=== PATIENT | female | born 1945 | race Caucasian/White ===

== ENCOUNTER 2016-10-16 13:29 | Emergency (ER) | payer OTHER, MEDICARE ==
[~2016-10-16] VITALS: Ht 160 cm; Wt 89.4 kg
[2016-10-16] MEDS ORDERED: IRBE150T12 (13:50)
[2016-10-16] MEDS ORDERED: [UNRECOGNIZED DRUG - REMARK] PO (13:50)
--- NOTE | 2016-10-16 15:14 | REP ---
Chest two views HISTORY: Chest pain Comparison: None The lungs are clear. The heart is upper limits of normal in size. The pulmonary vasculature is normal in appearance. The bony structure is intact. IMPRESSION: No acute disease. Signed by Scott Drake MD 10/16/2016 03:05 P
[2016-10-16] MEDS ORDERED: NS 500 ML IV ONE (15:45)
[2016-10-16 15:59] LABS: BASO # 0.1 K/mm3 (0.0-0.2); BASO % 0.3 % (0.0-1.0); EOS # 0.3 K/mm3 (0.0-0.50); EOS % 1.6 % (0.0-3.0); LARGE UNSTAINED CELL # 0.2 K/mm3 (0.0-0.4); LARGE UNSTAINED CELL % 1.1 % (0.0-4.0); LYMPH # 2.7 K/mm3 (1.5-4.5); LYMPH % 14.4 % (24.0-44.0); MEAN CORPUSCULAR HEMOGLOBIN 28.6 pg (27.0-33.0); MEAN CORPUSCULAR HGB CONC 32.9 g/dl (32.0-36.5); MONO # 0.5 K/mm3 (0.0-0.8); NEUTROPHILS % 79.5 % (36.0-66.0); PLATELET COUNT, AUTOMATED 328 k/mm3 (150-450); RED CELL DISTRIBUTION WIDTH 13.5 % (11.5-14.5); WHITE BLOOD COUNT 17.6 K/mm3 (4.0-10.0)
[2016-10-16 16:26] LABS: ANION GAP 7 MEQ/L (8-16); BLOOD UREA NITROGEN 17 MG/DL (7-18); CALCIUM LEVEL 8.9 MG/DL (8.8-10.2); CARBON DIOXIDE LEVEL 29 MEQ/L (21-32); CHLORIDE LEVEL 107 MEQ/L (98-107); CREATININE FOR GFR 0.66 MG/DL (0.55-1.02); GLOMERULAR FILTRATION RATE > 60.0 (>39); GLUCOSE, FASTING 115 MG/DL (83-110); POTASSIUM SERUM 3.9 MEQ/L (3.5-5.1); SODIUM LEVEL 143 MEQ/L (136-145)
[2016-10-16] MEDS ORDERED: ISOVUE-370 76% 100ML VIAL (Q9967) As Ordered ONE (16:44)
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
[2016-10-16] MEDS ORDERED: ACETAMINOPHEN TAB 650MG DOSE (2X325MG) PO ONE (18:15)
[2016-10-16 18:23] VITALS: BP 169/74
--- NOTE | 2016-10-17 08:35 | REP ---
SACRUM/COCCYX, THREE VIEWS: HISTORY: Chest pain. There is no acute fracture or subluxation. The L4-5 and L5-S1 intervertebral discs are decreased in height consistent with disc degeneration. IMPRESSION: Degenerative change, as described above. Signed by Scott Drake MD 10/17/2016 08:36 A
== END 2016-10-16 18:24 | disposition home or self-care (01) ==
LOC: EDBD 13:29 → M ED 14:36
DX: Z04.1 Encounter for examination and observation following transport accident (principal); R07.9 Chest pain, unspecified; V43.62XA Car passenger injured in collision with other type car in traffic accident, initial encounter; Y92.410 Unspecified street and highway as the place of occurrence of the external cause; Y93.89 Activity, other specified; Y99.8 Other external cause status
CPT/HCPCS: 71020; 71260; 72220; 74177; 80048; 85025; 96360; 99284; Q9967

== ENCOUNTER 2019-07-12 14:26 | Inpatient (IN) | payer MEDICARE ==
[~2019-07-12] VITALS: Ht 160 cm; Wt 87.6 kg
[~2019-07-12 14:26] MED LIST: IRBE150T7; [UNRECOGNIZED DRUG - REMARK] PO
[2019-07-12] MEDS ORDERED: CYCLOBENZAPRINE 5MG TABLET PO PRN (15:30)
[2019-07-12] MEDS ORDERED: MOM 30ML SUSPENSION UDC PO PRN (15:30)
[2019-07-12] MEDS ORDERED: BISACODYL 10 MG SUPP PR PRN (15:30)
[2019-07-12] MEDS ORDERED: ONDANSETRON 4 MG ORAL DISINTEGRATING TAB (Q0162 PER 1MG) PO PRN (15:30)
[2019-07-12] MEDS ORDERED: oxyCODONE 5MG TAB PO PRN (15:30)
--- NOTE | 2019-07-12 16:17 | HPEPDOC ---
Top Flavor Attendant Note DATE OF ADMISSION: 07-12-19 DATE OF SERVICE: 07-13-19 TIME OF ADMISSION: Please refer to physician's admission order. SOURCE OF ADMISSION INFORMATION: [facility] records and patient CHIEF COMPLAINT: hip fracture HISTORY OF PRESENT ILLNESS: 74F pmh left sided breast mass known for 5 years, htn, asthma, obesity who fell in [place] and transferred to [facility] in [place] after stepping down onto her left leg and heard a crack. CT LE on 07-05-19 showing, fracture of the left mid femoral diaphysis with mild displacement and mild posterior medial angulation of the distal fracture fragment. The edges of the bone are eroded highly suspicious for a pathologic fracture. Tumor is suspected, potentially metastatic disease. She was evaluated by orthopedics and cleared by medicine for ORIF performed 07-06-19. Post-op hip x-ray showed, interval placement of intramedullary femoral nohemi and femoral neck screws traversing femoral shaft fracture. She had post-op pain and elevated blood pressures in addition to lower extremity edema. She was evaluated by therapy, found to have impairments in mobility and ADLs and deemed medically appropriate for discharge to ARU, planned admission 07-12-19. REVIEW OF SYSTEMS: The following is a completed review of systems and has been reviewed. Review of systems otherwise unremarkable. PAIN: Patient self reports mild left hip pain EYES: No recent vision changes EARS, NOSE, & THROAT: No throat pain, or dysphagia, or rhinorrhea CARDIOVASCULAR: Denies chest pain or palpitations PULMONARY: Denies shortness of breath, +occasional cough GASTROINTESTINAL: Denies constipation/diarrhea GENITOURINARY: denies dysuria MUSCULOSKELETAL: left leg weakness NEUROLOGICAL: no focal tremor or neuropathy HEMATOLOGICAL: denies easy bruising SKIN: left hip incision PSYCHIATRIC: Unremarkable All other review of systems found to be negative. PAST MEDICAL HISTORY: as per HPI PAST SURGICAL HISTORY: as per HPI ALLERGIES: Please see below. MEDICATIONS: Please see below. SOCIAL HISTORY:former smoker, no illicit drugs, occasional ETOH DIET: low sodium, fluid restrict PHYSICAL EXAMINATION: VITAL SIGNS: Please see below. GENERAL: Pleasant and cooperative. No acute distress. HEENT: PERRL. Extraocular movements intact. Clear conjunctiva CARDIOVASCULAR: Regular rate and rhythm. No murmurs, rubs, or gallops LUNGS: Clear to auscultation bilaterally. No wheezes. No rhonchi ABDOMEN: Soft, nontender, nondistended. Positive bowel sounds. Normal active bowel sounds NEUROLOGICAL: Alert and oriented times three. Cranial nerves II through XII grossly intact. Sensation grossly intact including 1st web space of left foot EXTREMITIES: 5\5 strength bilateral upper extremities. 5\5 strength right lower extremity. 4/5 strength in left lower extremity. LLE edema>RLE SKIN: left hip and distal femur incisions- c/d/i with no induration LABORATORY DATA: Please see below. IMAGING:Imaging documentation personally reviewed by record FUNCTIONAL STATUS: Premorbid: Independent with all activities of daily life as well as mobility, occasional use of cane On Admission: Min assist for ambulation, functional transfers, bed mobility, dressing, toileting GOALS: Mod-I with RW community distances, functional transfers, stairs, dressing, bathing, toileting, medical optimization ASSESSMENT:74-year-old F with past medical history of HTN who presents status post left hip fracture. PLAN: 1. Rehab- PT/OT WBAT to LLE, advance gait and ADLs, dynamic balance training, strengthen/stretch/maintain ROM all 4 limbs 2. Neuro: no known hx, avoid deliriogenic meds 3. Cardio: pmh HTN, c/u home med Lozol, suspect degree of CHF will order daily weights and fluid restrict, patient refusing to take additional BP meds and will bring in her homeopathic BP med as soon as she can -medicine consulted to assist in management 4. resp: Hx of asthma, will start Duonebs TID, encourage incentive spirometry, m onitor for infection 5. Ortho: s/p left femur fracture ORIF, WBAT, awaiting pathology given concern due to metastatic disease 6. Onc: patient will need f/u for left breast mass, will consult onc while inhouse and help coordinate care 7. : monitor PVRs 8. GIppx: Pepcid, bowel meds 9. DVT ppx: Lovenox and TEDs- admission Doppler negative 10. Pain: tynelol standing, patient declining gabapentin/Flexeril/opioids 11. DIspo: TBD POST ADMISSION PHYSICIAN EVALUATION: Medical and functional status: Description of medical status, medical assessment: As above. Rehabilitation diagnosis and current and prior cold morbid medical conditions as above. Risk of complications and plans to mitigate them as above. Description of functional status current status is as above. Prior status as above. Status compared to preadmission: There are no clinically significant differences between the patient's current status and the information described on the preadmission screening document. Treatment plan anticipated: Treatment plan is as described above. Required disciplines including physical therapy, occupational therapy, others as noted above Intensity of services: 3 hours a day, 6 days a week. Special considerations: There are no specific special or safety considerations that would likely preclude immediate implementation of an intensive rehabilitation program or subsequently influence the plan of care. ATTESTATION: Considering all the information above, it is my best judgment that this patient requires intensive rehabilitation therapy as described above and an inpatient hospital environment due to the complexity of nursing, medical, and rehabilitation needs required by the patient. Furthermore, this patient can reasonably be expected to participate in an benefit from an inpatient rony abilitation stay with an interdisciplinary team approach to the delivery of rehabilitation care under the direction and supervision of rehabilitation physician. PROGNOSIS: Excellent ESTIMATED LENGTH OF STAY: 10-14 days. PROJECTED DISCHARGE DESTINATION: Home with family support and any durable medical equipment required to increase functional safety and mobility TIME SPENT COUNSELING AND COORDINATING INITIAL CARE: Greater than 70 minutes. Vital Signs Vital Signs Date Time Temp Pulse Resp B/P (MAP) Pulse Ox O2 Delivery O2 Flow Rate FiO2 07/12/19 19:30 98.9 106 18 171/81 (111) 95 Room Air Home Medications Scheduled Enoxaparin Sodium (Enoxaparin Sodium) 40 Mg/0.4 Ml Syringe, 40 MG SC DAILY, (Reported) Famotidine (Famotidine) 20 Mg Tablet, 20 MG PO DAILY, (Reported) Indapamide (Indapamide) 1.25 Mg Tablet, 1.25 MG PO DAILY, (Reported) Scheduled PRN Albuterol Sulfate (Ventolin Hfa) 18 Gm Hfa.aer.ad, 2 PUFF INH Q4H PRN for wheezing, (Reported) Bisacodyl (Bisacodyl) 10 Mg Supp.rect, 10 MG [place] DAILY PRN for CONSTIPATION, (Reported) Cyclobenzaprine HCl (Cyclobenzaprine HCl) 10 Mg Tablet, 5 MG PO TID PRN for MUSCLE SPASMS, (Reported) Ibuprofen (Ibuprofen) 600 Mg Tablet, 600 MG PO TID PRN for PAIN, (Reported) Milk Of Magnesia (Milk of Magnesia) 2,400 Mg/10 Ml Oral.susp, 30 ML PO DAILY PRN for CONSTIPATION, (Reported) Ondansetron HCl (Ondansetron HCl) 4 Mg Tablet, 4 MG PO Q6H PRN for NAUSEA OR VOMITING, (Reported) Allergies Coded Allergies: codeine (Verified Adverse Reaction, Unknown, VOMIT, 07/12/19) A-FIB/CHADSVASC A-FIB History Current/History of A-Fib/PAF?: No GAGE WILLIS MD Jul 12, 2019 16:17
[2019-07-12 19:30] VITALS: BP 171/81
[2019-07-12] MEDS: IPRATROPIUM 0.5MG/ALBUTEROL 2.5MG INH SOL UD 3ML (DUONEB)(J7620) NEB SCH (20:00)
[2019-07-12] MEDS ORDERED: ACETAMINOPHEN TAB 650MG DOSE (2X325MG) PO SCH (21:00)
[2019-07-12] MEDS ORDERED: IBUP1TAB6 PO (21:24)
[2019-07-12] MEDS ORDERED: VENTAER INH (21:24)
[2019-07-12] MEDS ORDERED: ENOX40IN3 SC (21:24)
[2019-07-12] MEDS ORDERED: INDA125TA PO (21:24)
[2019-07-12] MEDS ORDERED: CYCL10TA PO (21:24)
[2019-07-12] MEDS ORDERED: ONDA-83 PO (21:24)
[2019-07-12] MEDS ORDERED: BISA10SU27 PR (21:24)
[2019-07-12] MEDS ORDERED: FAMO20TA PO (21:24)
[2019-07-12] MEDS ORDERED: MOM30SS PO (21:24)
[2019-07-12] MEDS: ACETAMINOPHEN 500 MG TAB PO SCH (22:37)
[2019-07-12] MEDS: SENNA 8.6 MG TAB (SENOKOT) PO SCH (22:37)
[2019-07-12] MEDS: DOCUSATE SODIUM 100 MG CAP PO SCH (22:37)
[2019-07-12] MEDS: METOPROLOL TART 12.5 MG PER 1/2 TAB PO SCH (22:38)
[2019-07-12] MEDS: GABAPENTIN 100 MG CAP PO SCH (22:41)
[2019-07-12 23:31] VITALS: BP 150/72
[2019-07-13 05:45] VITALS: BP 173/70
[2019-07-13] MEDS: IPRATROPIUM 0.5MG/ALBUTEROL 2.5MG INH SOL UD 3ML (DUONEB)(J7620) NEB SCH ×4 (07:44→19:27)
[2019-07-13 08:50] LABS: BASO % 0.4 % (0.0-1.0); EOS # 0.4 10^3/uL (0.0-0.5); EOS % 3.7 % (0.0-3.0); HEMATOCRIT 39.4 % (36.0-47.0); HEMOGLOBIN 12.4 g/dl (12.0-15.5); LYMPH # 2.5 10^3/uL (1.5-5.0); LYMPH % 23.3 % (24.0-44.0); MEAN CORPUSCULAR HEMOGLOBIN 28.8 pg (27.0-33.0); MEAN CORPUSCULAR HGB CONC 31.5 g/dl (32.0-36.5); MEAN CORPUSCULAR VOLUME 91.4 fl (80.0-96.0); MONO # 0.8 10^3/uL (0.0-0.8); MONO % 7.5 % (0.0-5.0); NEUTROPHILS # 6.9 10^3/uL (1.5-8.5); NEUTROPHILS % 64.1 % (36.0-66.0); PLATELET COUNT, AUTOMATED 468 10^3/uL (150-450); RED BLOOD COUNT 4.31 10^6/uL (4.00-5.40); WHITE BLOOD COUNT 10.8 10^3/uL (4.0-10.0)
[2019-07-13] MEDS: ACETAMINOPHEN 500 MG TAB PO SCH ×3 (09:00→21:00)
[2019-07-13] MEDS: DOCUSATE SODIUM 100 MG CAP PO SCH ×2 (09:00→21:00)
[2019-07-13] MEDS: METOPROLOL TART 12.5 MG PER 1/2 TAB PO SCH (09:00)
[2019-07-13] MEDS ORDERED: amLODIPine 10 MG TAB PO SCH (09:00)
[2019-07-13] MEDS: GABAPENTIN 100 MG CAP PO SCH (09:00)
[2019-07-13] MEDS: FAMOTIDINE 20 MG TAB PO SCH (09:00)
[2019-07-13 09:18] LABS: ALBUMIN 3.1 GM/DL (3.2-5.2); ALT/SGPT 33 U/L (12-78); BILIRUBIN,TOTAL 0.5 MG/DL (0.2-1.0); BLOOD UREA NITROGEN 19 MG/DL (7-18); CALCIUM LEVEL 9.2 MG/DL (8.8-10.2); CARBON DIOXIDE LEVEL 31 MEQ/L (21-32); CHLORIDE LEVEL 103 MEQ/L (98-107); CREATININE FOR GFR 0.76 MG/DL (0.55-1.30); GLOMERULAR FILTRATION RATE > 60.0 (>39); GLUCOSE, FASTING 156 MG/DL (70-100); POTASSIUM SERUM 3.5 MEQ/L (3.5-5.1); SODIUM LEVEL 139 MEQ/L (136-145); TOTAL PROTEIN 7.5 GM/DL (6.4-8.2)
[2019-07-13] MEDS: ENOXAPARIN 40 MG/0.4 ML SYRINGE (J1650) SC SCH (10:22)
[2019-07-13] MEDS: INDAPAMIDE 1.25MG TABLET PO SCH (10:22)
--- NOTE | 2019-07-13 10:29 | REP ---
Bilateral lower extremity Duplex Doppler venous ultrasound: Real time compression and duplex Doppler interrogation of the bilateral lower extremity deep venous system is performed. Bilaterally, the common femoral, superficial femoral and popliteal veins are fully compressible with transducer pressure and demonstrate normal spontaneous and phasic flow, without evidence of deep venous thrombosis. Impression: No evidence of deep venous thrombosis of the bilateral lower extremity femoral popliteal venous system. Electronically Signed by Jose Briceno MD 07/13/2019 10:20 A
[2019-07-13 14:00] VITALS: BP 164/74
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
[2019-07-13 21:00] VITALS: BP 156/89
[2019-07-13] MEDS: SENNA 8.6 MG TAB (SENOKOT) PO SCH (21:00)
[2019-07-13] MEDS: BISACODYL 10 MG SUPP PR SCH (21:00)
[2019-07-14 06:00] VITALS: BP 146/68
[2019-07-14] MEDS: IPRATROPIUM 0.5MG/ALBUTEROL 2.5MG INH SOL UD 3ML (DUONEB)(J7620) NEB SCH ×3 (07:37→20:00)
[2019-07-14] MEDS: FAMOTIDINE 20 MG TAB PO SCH (09:00)
[2019-07-14] MEDS: ACETAMINOPHEN 500 MG TAB PO SCH ×3 (09:00→20:59)
[2019-07-14] MEDS: DOCUSATE SODIUM 100 MG CAP PO SCH ×2 (09:00→20:58)
[2019-07-14] MEDS: ENOXAPARIN 40 MG/0.4 ML SYRINGE (J1650) SC SCH (09:33)
[2019-07-14] MEDS: INDAPAMIDE 1.25MG TABLET PO SCH (09:33)
[2019-07-14 14:00] VITALS: BP 148/78
[2019-07-14 20:00] VITALS: BP 180/90
[2019-07-14] MEDS: SENNA 8.6 MG TAB (SENOKOT) PO SCH (20:58)
[2019-07-14] MEDS: BISACODYL 10 MG SUPP PR SCH (20:59)
[2019-07-14 21:30] VITALS: BP 168/74
[2019-07-15 06:00] VITALS: BP 190/90
[2019-07-15 06:52] LABS: HEMATOCRIT 34.6 % (36.0-47.0); HEMOGLOBIN 11.1 g/dl (12.0-15.5); MEAN CORPUSCULAR HEMOGLOBIN 29.1 pg (27.0-33.0); MEAN CORPUSCULAR HGB CONC 32.1 g/dl (32.0-36.5); MEAN CORPUSCULAR VOLUME 90.8 fl (80.0-96.0); PLATELET COUNT, AUTOMATED 390 10^3/uL (150-450); RED BLOOD COUNT 3.81 10^6/uL (4.00-5.40); WHITE BLOOD COUNT 9.2 10^3/uL (4.0-10.0)
[2019-07-15 07:10] LABS: BLOOD UREA NITROGEN 15 MG/DL (7-18); CALCIUM LEVEL 9.1 MG/DL (8.8-10.2); CARBON DIOXIDE LEVEL 31 MEQ/L (21-32); CHLORIDE LEVEL 106 MEQ/L (98-107); CREATININE FOR GFR 0.52 MG/DL (0.55-1.30); GLOMERULAR FILTRATION RATE > 60.0 (>39); GLUCOSE, FASTING 107 MG/DL (70-100); POTASSIUM SERUM 3.7 MEQ/L (3.5-5.1); SODIUM LEVEL 141 MEQ/L (136-145)
[2019-07-15] MEDS: FAMOTIDINE 20 MG TAB PO SCH (07:48)
[2019-07-15] MEDS: DOCUSATE SODIUM 100 MG CAP PO SCH ×2 (07:51→20:23)
[2019-07-15] MEDS: INDAPAMIDE 1.25MG TABLET PO SCH (07:51)
[2019-07-15] MEDS: ENOXAPARIN 40 MG/0.4 ML SYRINGE (J1650) SC SCH (07:52)
[2019-07-15] MEDS: ACETAMINOPHEN 500 MG TAB PO SCH ×3 (07:52→20:21)
[2019-07-15] MEDS: IPRATROPIUM 0.5MG/ALBUTEROL 2.5MG INH SOL UD 3ML (DUONEB)(J7620) NEB SCH ×3 (08:00→20:00)
[2019-07-15 10:18] VITALS: BP 178/76
[2019-07-15] MEDS: METOPROLOL TART 25 MG TABLET PO SCH ×2 (10:58→20:22)
[2019-07-15 13:47] VITALS: BP 180/82
[2019-07-15] MEDS: **hydrALAZINE HCL** 25 MG TAB PO SCH ×2 (14:05→20:22)
[2019-07-15 20:00] VITALS: BP 160/84
[2019-07-15] MEDS: BISACODYL 10 MG SUPP PR SCH (20:23)
[2019-07-15] MEDS: SENNA 8.6 MG TAB (SENOKOT) PO SCH (20:23)
[2019-07-15] MEDS ORDERED: amLODIPine 5 MG TAB PO SCH (21:00)
[2019-07-16 06:00] VITALS: BP 143/64
[2019-07-16] MEDS: IPRATROPIUM 0.5MG/ALBUTEROL 2.5MG INH SOL UD 3ML (DUONEB)(J7620) NEB SCH ×3 (08:00→20:00)
[2019-07-16] MEDS: FAMOTIDINE 20 MG TAB PO SCH (08:41)
[2019-07-16] MEDS: INDAPAMIDE 1.25MG TABLET PO SCH (08:41)
[2019-07-16] MEDS: ENOXAPARIN 40 MG/0.4 ML SYRINGE (J1650) SC SCH (08:41)
[2019-07-16] MEDS: ACETAMINOPHEN 500 MG TAB PO SCH ×3 (08:42→21:51)
[2019-07-16] MEDS: DOCUSATE SODIUM 100 MG CAP PO SCH ×2 (08:42→21:00)
[2019-07-16] MEDS: METOPROLOL TART 25 MG TABLET PO SCH (08:44)
[2019-07-16] MEDS: **hydrALAZINE HCL** 25 MG TAB PO SCH ×3 (08:44→21:50)
[2019-07-16 14:00] VITALS: BP 158/78
[2019-07-16] MEDS ORDERED: ENTER DRUG NAME HERE (PATIENT'S OWN MED) PO SCH (14:45)
--- NOTE | 2019-07-16 14:48 | IPNPDOC ---
PM&R Progress Note DATE OF SERVICE: Jul 16, 2019 Law Librarian Progress Note Subjective: Patient reporting she is feeling well overall, but that her left leg feel swollen. REVIEW OF SYSTEMS: The following is a completed review of systems and has been reviewed. Review of systems otherwise unremarkable. PAIN: Patient self reports mild left hip pain EYES: No recent vision changes EARS, NOSE, & THROAT: No throat pain, or dysphagia, or rhinorrhea CARDIOVASCULAR: Denies chest pain or palpitations PULMONARY: Denies shortness of breath, +occasional cough GASTROINTESTINAL: Denies constipation/diarrhea GENITOURINARY: denies dysuria MUSCULOSKELETAL: left leg weakness NEUROLOGICAL: no focal tremor or neuropathy HEMATOLOGICAL: denies easy bruising SKIN: left hip incision PSYCHIATRIC: Unremarkable All other review of systems found to be negative. PHYSICAL EXAMINATION: VITAL SIGNS: Please see below. GENERAL: Pleasant and cooperative. No acute distress. HEENT: PERRL. Extraocular movements intact. Clear conjunctiva CARDIOVASCULAR: Regular rate and rhythm. No murmurs, rubs, or gallops LUNGS: Clear to auscultation bilaterally. No wheezes. No rhonchi ABDOMEN: Soft, nontender, nondistended. Positive bowel sounds. Normal active bowel sounds NEUROLOGICAL: Alert and oriented times three. Cranial nerves II through XII grossly intact. Sensation grossly intact including 1st web space of left foot EXTREMITIES: 5\5 strength bilateral upper extremities. 5\5 strength right lower extremity. 4/5 strength in left lower extremity. LLE edema>RLE SKIN: left hip and distal femur incisions- c/d/i with no induration ASSESSMENT:74-year-old F with past medical history of HTN who presents status post left hip fracture. PLAN: 1. Rehab- PT/OT WBAT to LLE, advance gait and ADLs, dynamic balance training, strengthen/stretch/maintain ROM all 4 limbs 2. Neuro: no known hx, avoid deliriogenic meds 3. Cardio: pmh HTN, c/u home med Lozol, suspect degree of CHF will order daily weights and fluid restrict, patient now agreeing to take additional BP meds, c/u Metoprolol and hydralazine, patient has brought in herbal BP med -will start low dose lasix for LE edema -medicine consulted to assist in management 4. resp: Hx of asthma, will start Duonebs TID, encourage incentive spirometry, monitor for infection 5. Ortho: s/p left femur fracture ORIF, WBAT, awaiting pathology given concern due to metastatic disease 6. Onc: patient will need f/u for left breast mass, will consult onc while inhouse and help coordinate care 7. : monitor PVRs 8. GIppx: Pepcid, bowel meds 9. DVT ppx: Lovenox and TEDs- admission Doppler negative 10. Pain: tynelol standing, patient declining gabapentin/Flexeril/opioids 11. DIspo: TBD Allergies Coded Allergies: codeine (Verified Adverse Reaction, Unknown, VOMIT, 07/12/19) Vital Signs Vital Signs Date Time Temp Pulse Resp B/P (MAP) Pulse Ox O2 Delivery O2 Flow Rate FiO2 07/16/19 14:00 97.5 89 18 158/78 (104) 96 Room Air Current Medications Current Medications Current Medications Medications (Trade) Dose Ordered Sig/Jorge Route PRN Reason Start Time Stop Time Status Last Admin Dose Admin Acetaminophen (Tylenol Tab) 1,000 mg TID PO 07/12/19 21:00 07/12/19 22:08 DC Acetaminophen (Tylenol Tab) 1,000 mg TID PO 07/12/19 21:00 07/16/19 08:42 Albuterol/ Ipratropium (Duoneb (Ipr 0.5mg/Alb 2.5mg)) 3 ml RTID NEB 07/12/19 20:00 Amlodipine Besylate (Norvasc) 5 mg QHS PO 07/15/19 21:00 07/16/19 14:48 DC 07/15/19 20:22 Amlodipine Besylate (Norvasc) 10 mg DAILY PO 07/13/19 09:00 07/12/19 15:58 DC Bisacodyl (Dulcolax Suppository) 10 mg DAILYPRN PRN RI CONSTIPATION 07/12/19 15:30 07/13/19 13:43 DC Bisacodyl (Dulcolax Suppository) 10 mg QHS RI 07/13/19 21:00 Cyclobenzaprine HCl (Flexeril) 5 mg Q8HP PRN PO SPASMS 07/12/19 15:30 07/13/19 13:43 DC Docusate Sodium (Colace) 100 mg BID PO 07/12/19 21:00 07/16/19 08:42 Enoxaparin Sodium (Lovenox) 40 mg DAILY SC 07/13/19 09:00 07/16/19 08:41 Famotidine (Pepcid) 20 mg DAILY PO 07/13/19 09:00 07/16/19 08:41 Furosemide (Lasix) 20 mg DAILY PO 07/16/19 15:00 UNV Gabapentin (Neurontin) 200 mg TID PO 07/12/19 21:00 07/13/19 12:50 DC Home Med (Med Rec Complete!) ASDIRECTED XX 07/12/19 21:30 07/12/19 21:37 DC Hydralazine HCl (Apresoline) 25 mg TID PO 07/15/19 14:00 07/16/19 08:44 Indapamide (Lozol) 1.25 mg DAILY PO 07/13/19 09:00 07/16/19 08:41 Magnesium Hydroxide (Milk Of Magnesia) 30 ml DAILYPRN PRN PO CONSTIPATION 07/12/19 15:30 Metoprolol Tartrate (Lopressor) 12.5 mg BID PO 07/12/19 21:00 07/13/19 12:50 DC Metoprolol Tartrate (Lopressor) 25 mg BID PO 07/15/19 09:00 07/16/19 14:48 DC 07/16/19 08:44 Metoprolol Tartrate (Lopressor) 50 mg BID PO 07/16/19 21:00 UNV Ondansetron HCl (Zofran Odt) 4 mg Q6HP PRN PO NAUSEA OR VOMITING 07/12/19 15:30 Oxycodone HCl (Roxicodone, Oxyir) 2.5 mg Q4HP PRN PO PAIN 07/12/19 15:30 07/13/19 13:43 DC Patient Own Medication (Patient'S Own Med) [facility] Bl... ASDIRECTED PO 07/16/19 14:45 UNV Patient Own Medication (Patient'S Own Med) [facility] pac... ASDIRECTED PO 07/16/19 14:45 UNV Senna (Senokot) 1 tab QHS PO 07/12/19 21:00 07/14/19 20:58 GAGE WILLIS MD Jul 16, 2019 14:48
[2019-07-16] MEDS: [UNRECOGNIZED DRUG - OTHER] PO SCH (16:14)
[2019-07-16] MEDS: FUROSEMIDE 20 MG TAB PO SCH (16:15)
[2019-07-16] MEDS: BISACODYL 10 MG SUPP PR SCH (21:00)
[2019-07-16] MEDS: SENNA 8.6 MG TAB (SENOKOT) PO SCH (21:00)
[2019-07-16 21:45] VITALS: BP 156/96
[2019-07-16] MEDS: METOPROLOL TART 50 MG TAB PO SCH (21:50)
[2019-07-17 06:00] VITALS: BP 140/46
[2019-07-17] MEDS: IPRATROPIUM 0.5MG/ALBUTEROL 2.5MG INH SOL UD 3ML (DUONEB)(J7620) NEB SCH ×3 (07:50→20:00)
[2019-07-17] MEDS: [UNRECOGNIZED DRUG - OTHER] PO SCH (08:27)
[2019-07-17] MEDS: METOPROLOL TART 50 MG TAB PO SCH ×2 (08:28→20:42)
[2019-07-17] MEDS: **hydrALAZINE HCL** 25 MG TAB PO SCH ×3 (08:30→20:41)
[2019-07-17] MEDS: INDAPAMIDE 1.25MG TABLET PO SCH (08:30)
[2019-07-17] MEDS: MULTIVITAMINS/MINERALS THERAP 1 TAB PO SCH (08:31)
[2019-07-17] MEDS: ACETAMINOPHEN 500 MG TAB PO SCH ×3 (08:31→20:45)
[2019-07-17] MEDS: DOCUSATE SODIUM 100 MG CAP PO SCH ×2 (08:31→20:47)
[2019-07-17] MEDS: FAMOTIDINE 20 MG TAB PO SCH (08:32)
[2019-07-17] MEDS: ENOXAPARIN 40 MG/0.4 ML SYRINGE (J1650) SC SCH (08:32)
[2019-07-17] MEDS: FUROSEMIDE 20 MG TAB PO SCH (08:32)
[2019-07-17 10:08] LABS: BLOOD UREA NITROGEN 12 MG/DL (7-18); CALCIUM LEVEL 8.8 MG/DL (8.8-10.2); CARBON DIOXIDE LEVEL 32 MEQ/L (21-32); CHLORIDE LEVEL 104 MEQ/L (98-107); CREATININE FOR GFR 0.71 MG/DL (0.55-1.30); GLOMERULAR FILTRATION RATE > 60.0 (>39); GLUCOSE, FASTING 191 MG/DL (70-100); POTASSIUM SERUM 3.4 MEQ/L (3.5-5.1); SODIUM LEVEL 140 MEQ/L (136-145)
[2019-07-17] MEDS ORDERED: POTASSIUM CHLORIDE 10 MEQ SR TABLET PO ONE (12:00)
[2019-07-17 15:43] VITALS: BP 150/80
[2019-07-17 20:00] VITALS: BP 157/62
[2019-07-17] MEDS: BISACODYL 10 MG SUPP PR SCH (20:45)
[2019-07-17] MEDS: SENNA 8.6 MG TAB (SENOKOT) PO SCH (20:47)
[2019-07-18 05:59] VITALS: BP 156/96
[2019-07-18 06:34] LABS: HEMATOCRIT 34.6 % (36.0-47.0); HEMOGLOBIN 11.2 g/dl (12.0-15.5); MEAN CORPUSCULAR HEMOGLOBIN 29.4 pg (27.0-33.0); MEAN CORPUSCULAR HGB CONC 32.4 g/dl (32.0-36.5); MEAN CORPUSCULAR VOLUME 90.8 fl (80.0-96.0); PLATELET COUNT, AUTOMATED 406 10^3/uL (150-450); RED BLOOD COUNT 3.81 10^6/uL (4.00-5.40); WHITE BLOOD COUNT 9.9 10^3/uL (4.0-10.0)
[2019-07-18 07:00] LABS: BLOOD UREA NITROGEN 12 MG/DL (7-18); CALCIUM LEVEL 9.2 MG/DL (8.8-10.2); CARBON DIOXIDE LEVEL 31 MEQ/L (21-32); CHLORIDE LEVEL 106 MEQ/L (98-107); CREATININE FOR GFR 0.54 MG/DL (0.55-1.30); GLOMERULAR FILTRATION RATE > 60.0 (>39); GLUCOSE, FASTING 108 MG/DL (70-100); POTASSIUM SERUM 3.8 MEQ/L (3.5-5.1); SODIUM LEVEL 140 MEQ/L (136-145)
[2019-07-18] MEDS: IPRATROPIUM 0.5MG/ALBUTEROL 2.5MG INH SOL UD 3ML (DUONEB)(J7620) NEB SCH ×3 (07:37→20:57)
[2019-07-18] MEDS: FAMOTIDINE 20 MG TAB PO SCH ×2 (09:00→09:04)
[2019-07-18] MEDS: DOCUSATE SODIUM 100 MG CAP PO SCH ×2 (09:00→09:04)
[2019-07-18] MEDS: MULTIVITAMINS/MINERALS THERAP 1 TAB PO SCH ×2 (09:00→09:04)
[2019-07-18] MEDS: [UNRECOGNIZED DRUG - OTHER] PO SCH (09:03)
[2019-07-18] MEDS: ENOXAPARIN 40 MG/0.4 ML SYRINGE (J1650) SC SCH (09:04)
[2019-07-18] MEDS: METOPROLOL TART 50 MG TAB PO SCH ×2 (09:04→20:46)
[2019-07-18] MEDS: ACETAMINOPHEN 500 MG TAB PO SCH ×3 (09:04→20:46)
[2019-07-18] MEDS: FUROSEMIDE 20 MG TAB PO SCH (09:04)
[2019-07-18] MEDS: INDAPAMIDE 1.25MG TABLET PO SCH (09:04)
[2019-07-18] MEDS: **hydrALAZINE HCL** 25 MG TAB PO SCH ×3 (09:05→20:46)
[2019-07-18 14:00] VITALS: BP 152/62
[2019-07-18 20:00] VITALS: BP 172/78
[2019-07-18] MEDS: SENNA 8.6 MG TAB (SENOKOT) PO SCH (20:46)
[2019-07-19 05:37] VITALS: BP 158/90
[2019-07-19] MEDS: IPRATROPIUM 0.5MG/ALBUTEROL 2.5MG INH SOL UD 3ML (DUONEB)(J7620) NEB SCH ×3 (08:00→19:41)
[2019-07-19] MEDS: FAMOTIDINE 20 MG TAB PO SCH (09:00)
[2019-07-19] MEDS: METOPROLOL TART 50 MG TAB PO SCH ×2 (09:40→21:05)
[2019-07-19] MEDS: FUROSEMIDE 20 MG TAB PO SCH (09:40)
[2019-07-19] MEDS: **hydrALAZINE HCL** 25 MG TAB PO SCH (09:40)
[2019-07-19] MEDS: INDAPAMIDE 1.25MG TABLET PO SCH (09:40)
[2019-07-19] MEDS: ACETAMINOPHEN 500 MG TAB PO SCH ×3 (09:41→21:04)
[2019-07-19] MEDS: [UNRECOGNIZED DRUG - OTHER] PO SCH (09:44)
[2019-07-19 10:58] LABS: BLOOD UREA NITROGEN 13 MG/DL (7-18); CALCIUM LEVEL 9.1 MG/DL (8.8-10.2); CARBON DIOXIDE LEVEL 33 MEQ/L (21-32); CHLORIDE LEVEL 103 MEQ/L (98-107); CREATININE FOR GFR 0.57 MG/DL (0.55-1.30); GLOMERULAR FILTRATION RATE > 60.0 (>39); GLUCOSE, FASTING 98 MG/DL (70-100); POTASSIUM SERUM 3.8 MEQ/L (3.5-5.1); SODIUM LEVEL 139 MEQ/L (136-145)
--- NOTE | 2019-07-19 12:15 | IPNPDOC ---
PM&R Progress Note DATE OF SERVICE: Jul 17, 2019 Dental Laboratory Technician Apprentice Progress Note Subjective: Patient with family bedside were apprised of the pathology report from her hip operation and agree to follow up with Dr. Gilliam for further oncological care. REVIEW OF SYSTEMS: The following is a completed review of systems and has been reviewed. Review of systems otherwise unremarkable. PAIN: Patient self reports mild left hip pain EYES: No recent vision changes EARS, NOSE, & THROAT: No throat pain, or dysphagia, or rhinorrhea CARDIOVASCULAR: Denies chest pain or palpitations PULMONARY: Denies shortness of breath, +occasional cough GASTROINTESTINAL: Denies constipation/diarrhea GENITOURINARY: denies dysuria MUSCULOSKELETAL: left leg weakness NEUROLOGICAL: no focal tremor or neuropathy HEMATOLOGICAL: denies easy bruising SKIN: left hip incision PSYCHIATRIC: Unremarkable All other review of systems found to be negative. PHYSICAL EXAMINATION: VITAL SIGNS: Please see below. GENERAL: Pleasant and cooperative. No acute distress. HEENT: PERRL. Extraocular movements intact. Clear conjunctiva CARDIOVASCULAR: Regular rate and rhythm. No murmurs, rubs, or gallops LUNGS: Clear to auscultation bilaterally. No wheezes. No rhonchi ABDOMEN: Soft, nontender, nondistended. Positive bowel sounds. Normal active bowel sounds NEUROLOGICAL: Alert and oriented times three. Cranial nerves II through XII grossly intact. Sensation grossly intact including 1st web space of left foot EXTREMITIES: 5\5 strength bilateral upper extremities. 5\5 strength right lower extremity. 4/5 strength in left lower extremity. LLE edema>RLE SKIN: left hip and distal femur incisions- c/d/i with no induration ASSESSMENT:74-year-old F with past medical history of HTN who presents status post left hip fracture. PLAN: 1. Rehab- PT/OT WBAT to LLE, advance gait and ADLs, dynamic balance training, strengthen/stretch/maintain ROM all 4 limbs-ambulating well, room privileges 2. Neuro: no known hx, avoid deliriogenic meds 3. Cardio: pmh HTN, c/u home med Lozol, suspect degree of CHF will order daily weights and fluid restrict, patient now agreeing to take additional BP meds, c/u Metoprolol and hydralazine, patient has brought in herbal BP med -will start low dose lasix for LE edema -medicine consulted to assist in management 4. resp: Hx of asthma, will start Duonebs TID, encourage incentive spirometry, monitor for infection 5. Ortho: s/p left femur fracture ORIF, WBAT 6. Onc: [facility] surgical pathology report 100% ER, 90% [place], HER2 negative metastatic breast cancer -obtained thermography reports from [facility]- appointment made with Dr. Gilliam 07-26-19 at 2pm 7. : monitor PVRs 8. GIppx: Pepcid, bowel meds 9. DVT ppx: Lovenox and TEDs- admission Doppler negative 10. Pain: tynelol standing, patient declining gabapentin/Flexeril/opioids 11. DIspo: 07-20-19 to home, progressing towards goals Allergies Coded Allergies: codeine (Verified Adverse Reaction, Unknown, VOMIT, 07/12/19) Vital Signs Vital Signs Date Time Temp Pulse Resp B/P (MAP) Pulse Ox O2 Delivery O2 Flow Rate FiO2 07/19/19 09:40 88 180/90 07/19/19 05:37 97.3 18 98 Room Air Laboratory Data CBC/BMP Laboratory Tests 07/19/19 10:12 Labs 24H Laboratory Tests 2 07/19/19 10:12: Anion Gap 3L, Glomerular Filtration Rate > 60.0, Calcium Level 9.1 Current Medications Current Medications Current Medications Medications (Trade) Dose Ordered Sig/Jorge Route PRN Reason Start Time Stop Time Status Last Admin Dose Admin Acetaminophen (Tylenol Tab) 1,000 mg TID PO 07/12/19 21:00 07/12/19 22:08 DC Acetaminophen (Tylenol Tab) 1,000 mg TID PO 07/12/19 21:00 07/19/19 09:41 Albuterol/ Ipratropium (Duoneb (Ipr 0.5mg/Alb 2.5mg)) 3 ml RTID NEB 07/12/19 20:00 Amlodipine Besylate (Norvasc) 5 mg QHS PO 07/15/19 21:00 07/16/19 14:48 DC 07/15/19 20:22 Amlodipine Besylate (Norvasc) 10 mg DAILY PO 07/13/19 09:00 07/12/19 15:58 DC Bisacodyl (Dulcolax Suppository) 10 mg DAILYPRN PRN [place] CONSTIPATION 07/12/19 15:30 07/13/19 13:43 DC Bisacodyl (Dulcolax Suppository) 10 mg QHS [place] 07/13/19 21:00 07/18/19 16:59 DC Cyclobenzaprine HCl (Flexeril) 5 mg Q8HP PRN PO SPASMS 07/12/19 15:30 07/13/19 13:43 DC Docusate Sodium (Colace) 100 mg BID PO 07/12/19 21:00 07/18/19 16:59 DC 07/16/19 08:42 Enoxaparin Sodium (Lovenox) 40 mg DAILY SC 07/13/19 09:00 07/18/19 16:59 DC 07/18/19 09:04 Famotidine (Pepcid) 20 mg DAILY PO 07/13/19 09:00 07/16/19 08:41 Furosemide (Lasix) 20 mg DAILY PO 07/16/19 09:00 07/19/19 09:40 Gabapentin (Neurontin) 200 mg TID PO 07/12/19 21:00 07/13/19 12:50 DC Home Med (Med Rec Complete!) ASDIRECTED XX 07/12/19 21:30 07/12/19 21:37 DC Hydralazine HCl (Apresoline) 25 mg TID PO 07/15/19 14:00 07/19/19 09:55 DC 07/19/19 09:40 Hydralazine HCl (Apresoline) 50 mg TID PO 07/19/19 16:00 Indapamide (Lozol) 1.25 mg DAILY PO 07/13/19 09:00 07/19/19 09:40 Magnesium Hydroxide (Milk Of Magnesia) 30 ml DAILYPRN PRN PO CONSTIPATION 07/12/19 15:30 Metoprolol Tartrate (Lopressor) 12.5 mg BID PO 07/12/19 21:00 07/13/19 12:50 DC Metoprolol Tartrate (Lopressor) 25 mg BID PO 07/15/19 09:00 07/16/19 14:48 DC 07/16/19 08:44 Metoprolol Tartrate (Lopressor) 50 mg BID PO 07/16/19 21:00 07/19/19 09:40 Multivitamins (Theragram-M) 1 tab DAILY PO 07/17/19 09:00 3/4/20 16:59 DC Ondansetron HCl (Zofran Odt) 4 mg Q6HP PRN PO NAUSEA OR VOMITING 07/12/19 15:30 Oxycodone HCl (Roxicodone, Oxyir) 2.5 mg Q4HP PRN PO PAIN 07/12/19 15:30 07/13/19 13:43 DC Patient Own Medication (Patient'S Own Med) [facility] Bl... DAILY PO 07/16/19 09:00 07/19/19 09:44 Patient Own Medication (Patient'S Own Med) Complete Essentials[facility] pac... ASDIRECTED PO 07/16/19 14:45 07/16/19 15:13 DC Rivaroxaban (Xarelto) 10 mg DAILY@18 PO 07/19/19 18:00 Senna (Senokot) 1 tab QHS PO 07/12/19 21:00 07/14/19 20:58 GAGE WILLIS MD Jul 19, 2019 12:15
--- NOTE | 2019-07-19 12:17 | IPNPDOC ---
PM&R Progress Note DATE OF SERVICE: Jul 18, 2019 Film Library Clerk Progress Note Subjective: Patient seen in her room with wondering about injecting herself with Lovenox once she is home and asking for her maryuri to come out. REVIEW OF SYSTEMS: The following is a completed review of systems and has been reviewed. Review of systems otherwise unremarkable. PAIN: Patient self reports mild left hip pain EYES: No recent vision changes EARS, NOSE, & THROAT: No throat pain, or dysphagia, or rhinorrhea CARDIOVASCULAR: Denies chest pain or palpitations PULMONARY: Denies shortness of breath, +occasional cough GASTROINTESTINAL: Denies constipation/diarrhea GENITOURINARY: denies dysuria MUSCULOSKELETAL: left leg weakness NEUROLOGICAL: no focal tremor or neuropathy HEMATOLOGICAL: denies easy bruising SKIN: left hip incision PSYCHIATRIC: Unremarkable All other review of systems found to be negative. PHYSICAL EXAMINATION: VITAL SIGNS: Please see below. GENERAL: Pleasant and cooperative. No acute distress. HEENT: PERRL. Extraocular movements intact. Clear conjunctiva CARDIOVASCULAR: Regular rate and rhythm. No murmurs, rubs, or gallops LUNGS: Clear to auscultation bilaterally. No wheezes. No rhonchi ABDOMEN: Soft, nontender, nondistended. Positive bowel sounds. Normal active bowel sounds NEUROLOGICAL: Alert and oriented times three. Cranial nerves II through XII grossly intact. Sensation grossly intact including 1st web space of left foot EXTREMITIES: 5\5 strength bilateral upper extremities. 5\5 strength right lower extremity. 4/5 strength in left lower extremity. LLE edema>RLE SKIN: left hip and distal femur incisions- c/d/i with no induration ASSESSMENT:74-year-old F with past medical history of HTN who presents status post left hip fracture. PLAN: 1. Rehab- PT/OT WBAT to LLE, advance gait and ADLs, dynamic balance training, strengthen/stretch/maintain ROM all 4 limbs-ambulating well, room privileges 2. Neuro: no known hx, avoid deliriogenic meds 3. Cardio: pmh HTN, c/u home med Lozol, suspect degree of CHF will order daily weights and fluid restrict, patient now agreeing to take additional BP meds, c/u Metoprolol and hydralazine, patient has brought in herbal BP med -will start low dose lasix for LE edema -medicine consulted to assist in management 4. resp: Hx of asthma, will start Duonebs TID, encourage incentive spirometry, monitor for infection 5. Ortho: s/p left femur fracture ORIF, WBAT 6. Onc: [facility] surgical pathology report 100% ER, 90% [place], HER2 negative metastatic breast cancer -obtained thermography reports from [facility]- appointment made [facility] Dr. Gilliam 07-26-19 at 2pm 7. : monitor PVRs 8. GIppx: Pepcid, bowel meds 9. DVT ppx: will switch to oral XArelto for patient to remain on for at least 30 days for DVT ppx, however encouraged patient to discuss continutation of this medication with oncology since she is at increased risk of developed DVTs with cancer diagnosis- c/u TEDs- admission Doppler negative 10. Pain: tynelol standing, patient declining gabapentin/Flexeril/opioids 11. DIspo: 07-20-19 to home, progressing towards goals Allergies Coded Allergies: codeine (Verified Adverse Reaction, Unknown, VOMIT, 07/12/19) Vital Signs Vital Signs Date Time Temp Pulse Resp B/P (MAP) Pulse Ox O2 Delivery O2 Flow Rate FiO2 07/19/19 09:40 88 180/90 07/19/19 05:37 97.3 18 98 Room Air Laboratory Data CBC/BMP Laboratory Tests 07/19/19 10:12 Labs 24H Laboratory Tests 2 07/19/19 10:12: Anion Gap 3L, Glomerular Filtration Rate > 60.0, Calcium Level 9.1 Current Medications Current Medications Current Medications Medications (Trade) Dose Ordered Sig/Jorge Route PRN Reason Start Time Stop Time Status Last Admin Dose Admin Acetaminophen (Tylenol Tab) 1,000 mg TID PO 07/12/19 21:00 07/12/19 22:08 DC Acetaminophen (Tylenol Tab) 1,000 mg TID PO 07/12/19 21:00 07/19/19 09:41 Albuterol/ Ipratropium (Duoneb (Ipr 0.5mg/Alb 2.5mg)) 3 ml RTID NEB 07/12/19 20:00 Amlodipine Besylate (Norvasc) 5 mg QHS PO 07/15/19 21:00 07/16/19 14:48 DC 07/15/19 20:22 Amlodipine Besylate (Norvasc) 10 mg DAILY PO 07/13/19 09:00 07/12/19 15:58 DC Bisacodyl (Dulcolax Suppository) 10 mg DAILYPRN PRN [place] CONSTIPATION 07/12/19 15:30 07/13/19 13:43 DC Bisacodyl (Dulcolax Suppository) 10 mg QHS [place] 07/13/19 21:00 07/18/19 16:59 DC Cyclobenzaprine HCl (Flexeril) 5 mg Q8HP PRN PO SPASMS 07/12/19 15:30 07/13/19 13:43 DC Docusate Sodium (Colace) 100 mg BID PO 07/12/19 21:00 07/18/19 16:59 DC 07/16/19 08:42 Enoxaparin Sodium (Lovenox) 40 mg DAILY SC 07/13/19 09:00 07/18/19 16:59 DC 07/18/19 09:04 Famotidine (Pepcid) 20 mg DAILY PO 07/13/19 09:00 07/16/19 08:41 Furosemide (Lasix) 20 mg DAILY PO 07/16/19 09:00 07/19/19 09:40 Gabapentin (Neurontin) 200 mg TID PO 07/12/19 21:00 07/13/19 12:50 DC Home Med (Med Rec Complete!) ASDIRECTED XX 07/12/19 21:30 07/12/19 21:37 DC Hydralazine HCl (Apresoline) 25 mg TID PO 07/15/19 14:00 07/19/19 09:55 DC 07/19/19 09:40 Hydralazine HCl (Apresoline) 50 mg TID PO 07/19/19 16:00 Indapamide (Lozol) 1.25 mg DAILY PO 07/13/19 09:00 07/19/19 09:40 Magnesium Hydroxide (Milk Of Magnesia) 30 ml DAILYPRN PRN PO CONSTIPATION 07/12/19 15:30 Metoprolol Tartrate (Lopressor) 12.5 mg BID PO 07/12/19 21:00 07/13/19 12:50 DC Metoprolol Tartrate (Lopressor) 25 mg BID PO 07/15/19 09:00 07/16/19 14:48 DC 07/16/19 08:44 Metoprolol Tartrate (Lopressor) 50 mg BID PO 07/16/19 21:00 07/19/19 09:40 Multivitamins (Theragram-M) 1 tab DAILY PO 07/17/19 09:00 07/18/19 16:59 DC Ondansetron HCl (Zofran Odt) 4 mg Q6HP PRN PO NAUSEA OR VOMITING 07/12/19 15:30 Oxycodone HCl (Roxicodone, Oxyir) 2.5 mg Q4HP PRN PO PAIN 07/12/19 15:30 07/13/19 13:43 DC Patient Own Medication (Patient'S Own Med) [facility] Bl... DAILY PO 07/16/19 09:00 07/19/19 09:44 Patient Own Medication (Patient'S Own Med) [facility] Ess[facility] pac... ASDIRECTED PO 07/16/19 14:45 07/16/19 15:13 DC Rivaroxaban (Xarelto) 10 mg DAILY@18 PO 07/19/19 18:00 Senna (Senokot) 1 tab QHS PO 07/12/19 21:00 07/14/19 20:58 GAGE WILLIS MD Jul 19, 2019 12:17
--- NOTE | 2019-07-19 12:18 | IPNPDOC ---
PM&R Progress Note DATE OF SERVICE: Jul 19, 2019 Training Professional Progress Note Subjective: Patient seen on [employer]ust[employer] in gym stating she is feeling ok, no pain, no trouble breathing. REVIEW OF SYSTEMS: The following is a completed review of systems and has been reviewed. Review of systems otherwise unremarkable. PAIN: Patient self reports mild left hip pain EYES: No recent vision changes EARS, NOSE, & THROAT: No throat pain, or dysphagia, or rhinorrhea CARDIOVASCULAR: Denies chest pain or palpitations PULMONARY: Denies shortness of breath, +occasional cough GASTROINTESTINAL: Denies constipation/diarrhea GENITOURINARY: denies dysuria MUSCULOSKELETAL: left leg weakness NEUROLOGICAL: no focal tremor or neuropathy HEMATOLOGICAL: denies easy bruising SKIN: left hip incision PSYCHIATRIC: Unremarkable All other review of systems found to be negative. PHYSICAL EXAMINATION: VITAL SIGNS: Please see below. GENERAL: Pleasant and cooperative. No acute distress. HEENT: PERRL. Extraocular movements intact. Clear conjunctiva CARDIOVASCULAR: Regular rate and rhythm. No murmurs, rubs, or gallops LUNGS: Clear to auscultation bilaterally. No wheezes. No rhonchi ABDOMEN: Soft, nontender, nondistended. Positive bowel sounds. Normal active bowel sounds NEUROLOGICAL: Alert and oriented times three. Cranial nerves II through XII grossly intact. Sensation grossly intact including 1st web space of left foot EXTREMITIES: 5\5 strength bilateral upper extremities. 5\5 strength right lower extremity. 4/5 strength in left lower extremity. LLE edema>RLE SKIN: left hip and distal femur incisions- c/d/i with no induration ASSESSMENT:74-year-old F with past medical history of HTN who presents status post left hip fracture. PLAN: 1. Rehab- PT/OT WBAT to LLE, advance gait and ADLs, dynamic balance training, strengthen/stretch/maintain ROM all 4 limbs-ambulating well, room privileges 2. Neuro: no known hx, avoid deliriogenic meds 3. Cardio: pmh HTN, c/u home med Lozol, suspect degree of CHF will order daily weights and fluid restrict, patient now agreeing to take additional BP meds, c/u Metoprolol and hydralazine, patient has brought in herbal BP med -will start low dose lasix for LE edema -medicine consulted to assist in management 4. resp: Hx of asthma, will start Duonebs TID, encourage incentive spirometry, monitor for infection 5. Ortho: s/p left femur fracture ORIF, WBAT 6. Onc: [facility] surgical pathology report 100% ER, 90% [place], HER2 negative metastatic breast cancer -obtained thermography reports from [facility]- appointment made with Dr. Gilliam 07-26-19 at 2pm 7. : monitor PVRs 8. GIppx: Pepcid, bowel meds 9. DVT ppx: switched to oral XArelto for patient to remain on for at least 30 days for DVT ppx, however encouraged patient to discuss continutation of this medication with oncology since she is at increased risk of developed DVTs with cancer diagnosis- c/u TEDs- admission Doppler negative 10. Pain: tynelol standing, patient declining gabapentin/Flexeril/opioids 11. DIspo: 07-20-19 to home, progressing towards goals Allergies Coded Allergies: codeine (Verified Adverse Reaction, Unknown, VOMIT, 07/12/19) Vital Signs Vital Signs Date Time Temp Pulse Resp B/P (MAP) Pulse Ox O2 Delivery O2 Flow Rate FiO2 07/19/19 09:40 88 180/90 07/19/19 05:37 97.3 18 98 Room Air Laboratory Data CBC/BMP Laboratory Tests 07/19/19 10:12 Labs 24H Laboratory Tests 2 07/19/19 10:12: Anion Gap 3L, Glomerular Filtration Rate > 60.0, Calcium Level 9.1 Current Medications Current Medications Current Medications Medications (Trade) Dose Ordered Sig/Jorge Route PRN Reason Start Time Stop Time Status Last Admin Dose Admin Acetaminophen (Tylenol Tab) 1,000 mg TID PO 07/12/19 21:00 07/12/19 22:08 DC Acetaminophen (Tylenol Tab) 1,000 mg TID PO 07/12/19 21:00 07/19/19 09:41 Albuterol/ Ipratropium (Duoneb (Ipr 0.5mg/Alb 2.5mg)) 3 ml RTID NEB 07/12/19 20:00 Amlodipine Besylate (Norvasc) 5 mg QHS PO 07/15/19 21:00 07/16/19 14:48 DC 07/15/19 20:22 Amlodipine Besylate (Norvasc) 10 mg DAILY PO 07/13/19 09:00 07/12/19 15:58 DC Bisacodyl (Dulcolax Suppository) 10 mg DAILYPRN PRN [place] CONSTIPATION 07/12/19 15:30 07/13/19 13:43 DC Bisacodyl (Dulcolax Suppository) 10 mg QHS [place] 07/13/19 21:00 07/18/19 16:59 DC Cyclobenzaprine HCl (Flexeril) 5 mg Q8HP PRN PO SPASMS 07/12/19 15:30 07/13/19 13:43 DC Docusate Sodium (Colace) 100 mg BID PO 07/12/19 21:00 07/18/19 16:59 DC 07/16/19 08:42 Enoxaparin Sodium (Lovenox) 40 mg DAILY SC 07/13/19 09:00 07/18/19 16:59 DC 07/18/19 09:04 Famotidine (Pepcid) 20 mg DAILY PO 07/13/19 09:00 07/16/19 08:41 Furosemide (Lasix) 20 mg DAILY PO 07/16/19 09:00 07/19/19 09:40 Gabapentin (Neurontin) 200 mg TID PO 07/12/19 21:00 07/13/19 12:50 DC Home Med (Med Rec Complete!) ASDIRECTED XX 07/12/19 21:30 07/12/19 21:37 DC Hydralazine HCl (Apresoline) 25 mg TID PO 07/15/19 14:00 07/19/19 09:55 DC 07/19/19 09:40 Hydralazine HCl (Apresoline) 50 mg TID PO 07/19/19 16:00 Indapamide (Lozol) 1.25 mg DAILY PO 07/13/19 09:00 07/19/19 09:40 Magnesium Hydroxide (Milk Of Magnesia) 30 ml DAILYPRN PRN PO CONSTIPATION 07/12/19 15:30 Metoprolol Tartrate (Lopressor) 12.5 mg BID PO 07/12/19 21:00 07/13/19 12:50 DC Metoprolol Tartrate (Lopressor) 25 mg BID PO 07/15/19 09:00 07/16/19 14:48 DC 07/16/19 08:44 Metoprolol Tartrate (Lopressor) 50 mg BID PO 07/16/19 21:00 07/19/19 09:40 Multivitamins (Theragram-M) 1 tab DAILY PO 07/17/19 09:00 07/18/19 16:59 DC Ondansetron HCl (Zofran Odt) 4 mg Q6HP PRN PO NAUSEA OR VOMITING 07/12/19 15:30 Oxycodone HCl (Roxicodone, Oxyir) 2.5 mg Q4HP PRN PO PAIN 07/12/19 15:30 07/13/19 13:43 DC Patient Own Medication (Patient'S Own Med) [facility] Bl... DAILY PO 07/16/19 09:00 07/19/19 09:44 Patient Own Medication (Patient'S Own Med) Complete Essentials-[facility] pac... ASDIRECTED PO 07/16/19 14:45 07/16/19 15:13 DC Rivaroxaban (Xarelto) 10 mg DAILY@18 PO 07/19/19 18:00 Senna (Senokot) 1 tab QHS PO 07/12/19 21:00 07/14/19 20:58 GAGE WILLIS MD Jul 19, 2019 12:18
[2019-07-19] MEDS ORDERED: INDA125TA PO (12:41)
[2019-07-19] MEDS ORDERED: FURO20TA2 PO (12:41)
[2019-07-19] MEDS ORDERED: XARE10TA PO (12:41)
[2019-07-19] MEDS ORDERED: LOPR1TAB6 PO (12:41)
[2019-07-19] MEDS ORDERED: HYDR50TA PO (12:41)
[2019-07-19] MEDS ORDERED: FAMO20TA PO (12:41)
--- NOTE | 2019-07-19 13:49 | IPNPDOC ---
Text Note Date of Service The patient was seen on 07/19/19. NOTE HISTORY OF PRESENT ILLNESS: Patient is seen sitting up in a chair visiting with her family today. She now has a confirmed diagnosis of malignancy per the results of her biopsy in [facility]; she will be following up with Dr. Chakraborty, oncology outpatient. Unfortunately, these records are unavailable to me at this time. She is looking forward to being discharged home tomorrow. PHYSICAL EXAMINATION: VITAL SIGNS: Please see below. General Exam: Positive: Alert, No Acute Distress Eye Exam: Positive: PERRLA, Conjunctiva & lids normal, EOMI; Negative: Sclera icteric ENT Exam: Positive: Atraumatic, Mucous membr. moist/pink, Pharynx Normal Neck Exam: Positive: Supple; Negative: thyromegaly Chest Exam: Positive: Clear to auscultation, Normal air movement Heart Exam: Positive: Rate Normal, Regular Rhythm, Normal S1, Normal S2; Negative: Murmurs, Rubs Telemetry: Positive: No significant arrhythmia Abdomen Exam: Positive: Normal bowel sounds, Soft; Negative: Tenderness Extremity Exam: Positive: Normal pulses; Negative: Clubbing, Cyanosis, Edema Skin Exam: Positive: Nl turgor and temperature; Negative: Rash, Breakdown Neuro Exam: Positive: Normal Speech Psych Exam: Positive: Mood NL, Oriented x 3 ASSESSMENT/PLAN: Ms. Plata is a 74-year-old female who was admitted from [facility] in [place] to the ARU following a fracture of the left mid femoral diaphysis with mild displacement. Pt reported that she went on holiday/cruise and was disembarking the ship when she stepped down and heard a snap in her left leg. This occurred on Tuesday in [place]. Patient reported that the pain in her left leg was immediate and severe. She was stuck on the cruise ship for 2-1/2 days due to some insurance issues; she then traveled across [place] for 2 and a half hours, eventually being able to return to [place], which is where she had her surgery, ORIF on Tuesday. Patient has a past medical history which includes: Left-sided breast mass (present for 5 years), hypertension, asthma, obesity. The CT of her left leg on 07/05/19 showed "fracture of the left mid femoral diaphysis with mild displacement and mild posterior medial angulation of the distal fracture fragment. The edges of the bone are eroded highly suspicious for a pathologic fracture. Tumor is suspected, potentially metastatic disease. 1. Left femur fracture - continued management per ARU - Suspicion for pathological fracture as noted above on imaging; biopsy was taken during ORIF at [facility] in [place], pathology results are positive for malignancy. Will follow-up with Dr. Chakraborty, oncology outpatient. 2. Hypertension - Amlodipine was switched to Metoprolol due to possible pedal edema with Amlodipine per Dr. Fagan - Continues with Lozol Hydralazine 50 mg 3 times a day has been added - Vitals are stable 3. Left-sided breast mass - Mass was imaged 5 years ago via ultrasound. Since then patient has had thermal imaging every 6 months, which later progressed yearly. - Mass has not been biopsied and she has not seen an oncologist. This is her choice. -We will be following up with Dr. Chakraborty outpatient 4. Asthma - Continue home medications 5. Obesity - complicates care Dispo: Planned discharge home 07/20/19 DVT prophylaxis: Has requested Xarelto instead of Lovenox, scheduled to start this evening VS,Fishbone, I+O VS, Fishbone, I+O Laboratory Tests 07/19/19 10:12 Vital Signs Date Time Temp Pulse Resp B/P (MAP) Pulse Ox O2 Delivery O2 Flow Rate FiO2 07/19/19 09:40 88 180/90 07/19/19 05:37 97.3 18 98 Room Air I&O- Last 24 Hours up to 6 AM 07/19/19 06:00 Intake Total 1380 ml Balance 1380 ml TRI RAMOS PA-C Jul 19, 2019 13:49
[2019-07-19 14:00] VITALS: BP 162/88
[2019-07-19 15:51] VITALS: BP 138/72
[2019-07-19] MEDS: **hydrALAZINE** 50 MG TAB PO SCH ×2 (17:05→21:05)
[2019-07-19] MEDS ORDERED: RIVAROXABAN 10 MG TAB (XARELTO) PO SCH (18:00)
[2019-07-19 20:00] VITALS: BP 162/82
[2019-07-19] MEDS: SENNA 8.6 MG TAB (SENOKOT) PO SCH (21:00)
[2019-07-20 06:00] VITALS: BP 170/80
[2019-07-20] MEDS: IPRATROPIUM 0.5MG/ALBUTEROL 2.5MG INH SOL UD 3ML (DUONEB)(J7620) NEB SCH ×2 (07:51→13:57)
[2019-07-20] MEDS: FAMOTIDINE 20 MG TAB PO SCH (09:00)
[2019-07-20] MEDS: [UNRECOGNIZED DRUG - OTHER] PO SCH (09:13)
[2019-07-20] MEDS: ACETAMINOPHEN 500 MG TAB PO SCH (09:13)
[2019-07-20] MEDS: FUROSEMIDE 20 MG TAB PO SCH (09:13)
[2019-07-20 09:14] VITALS: BP 170/80
[2019-07-20] MEDS: INDAPAMIDE 1.25MG TABLET PO SCH (09:14)
[2019-07-20] MEDS: **hydrALAZINE** 50 MG TAB PO SCH (09:14)
[2019-07-20] MEDS: METOPROLOL TART 50 MG TAB PO SCH (09:14)
[2019-07-20 14:00] VITALS: BP 152/98
== END 2019-07-20 15:10 | disposition home health service (06) | DRG 560 ==
LOC: M PM&R 19:25
PROVIDERS: ADMIT Physical Medicine & Rehabilitation; ATTEND Physical Medicine & Rehabilitation
DX: M84.552D Pathological fracture in neoplastic disease, left femur, subsequent encounter for fracture with routine healing (principal); C79.51 Secondary malignant neoplasm of bone; N63.20 Unspecified lump in the left breast, unspecified quadrant; I11.0 Hypertensive heart disease with heart failure; J45.909 Unspecified asthma, uncomplicated; E66.9 Obesity, unspecified; C50.912 Malignant neoplasm of unspecified site of left female breast; Z68.34 Body mass index [BMI] 34.0-34.9, adult; R26.89 Other abnormalities of gait and mobility; I50.9 Heart failure, unspecified; Z79.899 Other long term (current) drug therapy; Z88.5 Allergy status to narcotic agent; Z87.891 Personal history of nicotine dependence

== ENCOUNTER → 2019-08-03 | Outpatient (CLI) | payer MEDICARE, OTHER ==
[~2019-08-03] MED LIST changes: +BISA10SU27 PR; +CYCL10TA PO; +ENOX40IN3 SC; +FAMO20TA PO; +FURO20TA2 PO; +GASTROGRAFIN SOLUTION 30ML (Q9963) As Ordered ONE; +HYDR50TA PO; +IBRA125C PO; +IBUP1TAB6 PO; +INDA125TA PO; +ISOVUE-370 76% 100ML VIAL (Q9967) As Ordered ONE; +LETR2.5T2 PO; +LOPR1TAB6 PO; +MOM30SS PO; +ONDA-83 PO; +VENTAER INH; +XARE10TA PO
--- NOTE | 2019-08-03 13:48 | REP ---
CT chest with IV contrast: History: Metastatic breast carcinoma. Extent of disease staging. Recent pathologic fracture left femur. Prior history left breast mass 2017. Comparison chest CT study October 16, 2016. CT contrast dose: 100 ml of intravenous Isovue 370. CT findings: There is a 17 mm left thyroid nodule unchanged from the prior study. There is an irregular spiculated mass lesion in the upper outer quadrant of the left breast which measures 2.9 x 2.9 x 2.5 cm. There is no evidence of left axillary lymphadenopathy. There is however a right axillary lymphadenopathy with multiple hypertrophied lymph nodes. The largest of these measures 1.2 cm in short axis dimension by 2.2 cm. There is a spiculated mass the upper outer quadrant of the right breast today measuring 1.5 cm by 2.1 cm. No internal mammary adenopathy is seen. No hilar or mediastinal adenopathy is observed. There is no vascular abnormality involving the pulmonary arterial tree or the thoracic aorta. No pleural effusion is seen. There is mild linear fibrosis in the lower lobes bilaterally unchanged. No pulmonary nodule is seen. No evidence of infiltrate. No adrenal lesion is observed. No rib or other bony destructive lesion is appreciated. Impression: There are now bilateral suspicious spiculated masses, one in each breast in the upper outer quadrants. There is right axillary lymphadenopathy. No intrathoracic metastatic disease is appreciated. No bony metastatic disease is appreciated. Otherwise negative. Electronically Signed by Ervin Barrett MD 08/03/2019 01:39 P
--- NOTE | 2019-08-03 14:14 | REP ---
CT ABDOMEN AND PELVIS WITH IV AND ORAL CONTRAST: HISTORY: Metastatic breast carcinoma. Extent of disease staging. Comparison CT abdomen and pelvis study October 16, 2016. CT CONTRAST DOSE: 100 mL of intravenous Isovue 370. 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 An intramedullary nohemi is seen in the proximal femur on the left. No focal hepatic mass lesion is seen. The spleen is unremarkable. No adrenal lesion is observed on either side. No abnormality is noted in the gallbladder or the pancreas. There is a small descending duodenal diverticulum. No periaortic adenopathy is seen. The kidneys enhance symmetrically and appear morphologically intact. Pelvic CT images demonstrate that the uterus is surgically absent. Small and large bowel loops are unremarkable. No mesenteric mass or adenopathy is observed. On bone window settings, there is a lytic lesion in the left mid sacrum, second and third sacral segments consistent with skeletal metastasis. There is slight cortical thinning here. This lesion measures 3.4 cm in greatest diameter. There is a benign hemangioma in the L2 vertebral body. No other skeletal metastatic site is appreciated. Urinary bladder is intact. No abdominal wall defect is seen. IMPRESSION: Status post hysterectomy. No intra-abdominal metastatic disease is seen. There is a 3.4 cm metastasis in the left mid sacrum with some cortical thinning. Electronically Signed by Ervin Barrett MD 08/03/2019 02:20 P
== END ==
LOC: M RAD 10:50
PROVIDERS: ATTEND Internal Medicine Medical Oncology
DX: C50.912 Malignant neoplasm of unspecified site of left female breast (principal); E04.1 Nontoxic single thyroid nodule; R59.0 Localized enlarged lymph nodes; N63.11 Unspecified lump in the right breast, upper outer quadrant
CPT/HCPCS: 71260; 74177; Q9963; Q9967

== ENCOUNTER → 2019-09-03 | Outpatient (CLI) | payer MEDICARE, OTHER ==
[~2019-09-03] MED LIST changes: +CYCL-707 PO; -CYCL10TA PO; -GASTROGRAFIN SOLUTION 30ML (Q9963) As Ordered ONE; -ISOVUE-370 76% 100ML VIAL (Q9967) As Ordered ONE; +PALB125T PO
[2019-09-03 13:56] LABS: BASO # 0.1 10^3/uL (0.0-0.2); BASO % 0.8 % (0.0-1.0); EOS # 0.1 10^3/uL (0.0-0.5); EOS % 0.6 % (0.0-3.0); HEMATOCRIT 38.1 % (36.0-47.0); HEMOGLOBIN 12.6 g/dl (12.0-15.5); LYMPH % 39.3 % (24.0-44.0); MEAN CORPUSCULAR HEMOGLOBIN 29.8 pg (27.0-33.0); MEAN CORPUSCULAR HGB CONC 33.1 g/dl (32.0-36.5); MEAN CORPUSCULAR VOLUME 90.1 fl (80.0-96.0); MONO # 0.9 10^3/uL (0.0-0.8); MONO % 12.2 % (0.0-5.0); NEUTROPHILS # 3.6 10^3/uL (1.5-8.5); NEUTROPHILS % 46.8 % (36.0-66.0); PLATELET COUNT, AUTOMATED 318 10^3/uL (150-450); RED BLOOD COUNT 4.23 10^6/uL (4.00-5.40); WHITE BLOOD COUNT 7.7 10^3/uL (4.0-10.0)
== END ==
LOC: M LAB 13:19
PROVIDERS: ATTEND Internal Medicine Medical Oncology
DX: C50.912 Malignant neoplasm of unspecified site of left female breast (principal)

== ENCOUNTER → 2019-09-13 | Outpatient (CLI) | payer MEDICARE, OTHER ==
[~2019-09-13] MED LIST changes: +BLAC1CAP2 PO; +BP SUPPORT PO; +[UNRECOGNIZED DRUG - OTHER] PO
== END ==
LOC: M ONCR 09:03
PROVIDERS: ATTEND Radiology Radiation Oncology
DX: C50.919 Malignant neoplasm of unspecified site of unspecified female breast (principal); C79.51 Secondary malignant neoplasm of bone

== ENCOUNTER → 2019-09-17 | Outpatient (CLI) | payer MEDICARE, OTHER ==
[2019-09-17 10:45] LABS: BASO # 0.1 10^3/uL (0.0-0.2); BASO % 1.3 % (0.0-1.0); EOS # 0.1 10^3/uL (0.0-0.5); EOS % 1.7 % (0.0-3.0); HEMATOCRIT 38.3 % (36.0-47.0); HEMOGLOBIN 12.4 g/dl (12.0-15.5); LYMPH # 1.9 10^3/uL (1.5-5.0); LYMPH % 40.4 % (24.0-44.0); MEAN CORPUSCULAR HEMOGLOBIN 29.9 pg (27.0-33.0); MEAN CORPUSCULAR HGB CONC 32.4 g/dl (32.0-36.5); MEAN CORPUSCULAR VOLUME 92.3 fl (80.0-96.0); MONO # 0.2 10^3/uL (0.0-0.8); MONO % 5.2 % (0.0-5.0); NEUTROPHILS # 2.3 10^3/uL (1.5-8.5); PLATELET COUNT, AUTOMATED 349 10^3/uL (150-450); RED BLOOD COUNT 4.15 10^6/uL (4.00-5.40); WHITE BLOOD COUNT 4.6 10^3/uL (4.0-10.0)
[2019-09-17 11:19] LABS: ALBUMIN 3.6 GM/DL (3.2-5.2); ALT/SGPT 27 U/L (12-78); BILIRUBIN,TOTAL 0.3 MG/DL (0.2-1.0); BLOOD UREA NITROGEN 14 MG/DL (7-18); CALCIUM LEVEL 8.7 MG/DL (8.8-10.2); CARBON DIOXIDE LEVEL 30 MEQ/L (21-32); CHLORIDE LEVEL 107 MEQ/L (98-107); CREATININE FOR GFR 0.68 MG/DL (0.55-1.30); GLOMERULAR FILTRATION RATE > 60.0 (>39); GLUCOSE, FASTING 118 MG/DL (70-100); POTASSIUM SERUM 4.3 MEQ/L (3.5-5.1); SODIUM LEVEL 143 MEQ/L (136-145); TOTAL PROTEIN 7.3 GM/DL (6.4-8.2)
== END ==
LOC: M LAB 10:13
PROVIDERS: ATTEND Internal Medicine Medical Oncology
DX: C50.919 Malignant neoplasm of unspecified site of unspecified female breast (principal)

== ENCOUNTER 2019-10-09 09:30 | Outpatient (RCR) | payer MEDICARE, OTHER ==
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
--- NOTE | 2019-09-20 08:41 | RADONC ---
RADIATION ONCOLOGY SIMULATION NOTE DATE: 09/17/2019 CHART NUMBER: [id number] SIMULATION NOTE: Ms. Plata was taken to the CT scan for CT simulation of her left femur. CT was accomplished without difficulty or discomfort. Radiation treatment planning is underway and radiation treatments will begin subsequently. An immobilization device was created and will be used throughout the course of treatment. It was created without difficulty or discomfort. I was physically present throughout the course of CT simulation.
--- NOTE | 2019-10-03 07:44 | RADONC ---
RADIATION ONCOLOGY PROGRESS NOTE DATE: 10/01/2019 CHART #: [id number] Ms. Plata is presently at a dose of 1500 cGy to her left femur and is tolerating treatments quite well at this point with no complaints related to her radiation therapy. She has no significant pain or discomfort. REVIEW OF SYSTEMS: The patient's review of systems is noncontributory. Denies nausea, vomiting, fevers, chills, night sweats, diplopia, headaches, anxiety or depression, anorexia, weight loss, visual disturbances, chest pain, urinary or bowel difficulties, bone pain, or neurological problems. PHYSICAL EXAMINATION: The patient's skin is in good condition with no evidence of moist or dry desquamation. The remainder of her physical exam remains unchanged. Ms. Plata is tolerating treatments quite well and radiation will continue as scheduled.
[2019-10-22] MEDS ORDERED: SILV40CR EXT (12:53)
== END 2019-10-14 ==
LOC: M ONCR 09:30
PROVIDERS: ATTEND Radiology Radiation Oncology
DX: C79.51 Secondary malignant neoplasm of bone (principal)

== ENCOUNTER → 2019-11-07 | Outpatient (CLI) | payer MEDICARE, OTHER ==
[~2019-11-07] MED LIST changes: +SILV40CR EXT
--- NOTE | 2019-11-11 15:12 | RADONC ---
RADIATION ONCOLOGY FOLLOWUP: DATE: 11/07/2019 CHART NUMBER: [id number] HISTORY OF PRESENT ILLNESS: Ms Plata is a 74-year-old woman who carries the diagnosis of metastatic breast CA. Diagnosis was made many years ago and she has been followed by medical oncologist. Breast CA is ER/WV positive HER2/sherman negative. Currently, she is on letrozole and Ibrance and she completed palliative radiation therapy to the left hip on 10/09/2019. After treatment, she developed significant skin reaction in the back of the left hip, which was treated with Silvadene. Currently, the skin reaction healed completely. No openings. REVIEW OF SYSTEMS: She denies any constitutional symptoms other than the pain in the left hip and thigh, especially with movement. She also has chronic pain in the left shoulder, which she was told was frozen shoulder. PHYSICAL EXAMINATION: On examination patient is a well-developed nourished slightly obese female. She is alert and oriented. She was not in apparent distress. There is limitation of movement of the left arm so is left hip area. The skin reaction is healed without any openings. Breast exam: There is a abnormal mass in the upper outer quadrant. Left breast is without any palpable mass. ASSESSMENT/RECOMMENDATIONS: 74-year-old woman who carries the diagnosis of metastatic breast CA, ER/WV positive, HER2/sherman negative. She is currently on letrozole and Ibrance. Palliative radiation therapy to the left hip was completed on 10/09/2019. She is doing well. The pain in the left hip is improved. Now she only experiences the pain with movement. She was advised continuous followup care with the physicians involved. She was also asked to return in 3 months or sooner if it is needed. ALDO
== END ==
LOC: M ONCR 09:56
PROVIDERS: ATTEND Radiology Radiation Oncology
DX: C50.912 Malignant neoplasm of unspecified site of left female breast (principal)

== ENCOUNTER 2020-01-02 18:18 | Observation (INO) | payer OTHER, MEDICARE ==
[~2020-01-02] VITALS: Ht 160 cm; Wt 90.5 kg
[2020-01-02] MEDS ORDERED: METO1TAB33 (18:41)
[2020-01-02] MEDS ORDERED: ISOVUE-370 76% 100ML VIAL As Ordered ONE (19:31)
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
[2020-01-02 21:16] LABS: BASO # 0.1 10^3/uL (0.0-0.2); BASO % 0.8 % (0.0-1.0); EOS # 0.1 10^3/uL (0.0-0.5); HEMATOCRIT 35.3 % (36.0-47.0); LYMPH % 12.8 % (24.0-44.0); MEAN CORPUSCULAR HEMOGLOBIN 34.2 pg (27.0-33.0); MEAN CORPUSCULAR VOLUME 100.6 fl (80.0-96.0); MONO # 0.3 10^3/uL (0.0-0.8); MONO % 4.1 % (0.0-5.0); NEUTROPHILS # 6.4 10^3/uL (1.5-8.5); NEUTROPHILS % 80.2 % (36.0-66.0); PLATELET COUNT, AUTOMATED 356 10^3/uL (150-450); RED BLOOD COUNT 3.51 10^6/uL (4.00-5.40)
[2020-01-02 21:27] LABS: INR 0.95; PROTHROMBIN TIME 12.9 SECONDS (11.8-14.0)
[2020-01-02 21:28] LABS: PARTIAL THROMBOPLASTIN TIME 28.5 SECONDS (25.0-38.4)
[2020-01-02 21:38] LABS: ALBUMIN 3.7 GM/DL (3.2-5.2); ALT/SGPT 27 U/L (12-78); BILIRUBIN,DIRECT < 0.1 MG/DL (0.0-0.2); BILIRUBIN,TOTAL 0.2 MG/DL (0.2-1.0); CK-MB VALUE MASS 9.6 NG/ML (<3.6); CPK CREATINE PHOSPHOKINASE 287 U/L (26-192); LIPASE 70 U/L (73-393); MB/CK RELATIVE INDEX 3.34 (< OR =4); TROPONIN I < 0.02 NG/ML (< 0.10)
[2020-01-02] MEDS ORDERED: XGEVINJ SC (23:33)
[2020-01-02] MEDS ORDERED: METO1TAB33 PO (23:33)
[2020-01-02] MEDS ORDERED: INDA125TA PO (23:33)
[2020-01-03] MEDS ORDERED: ACETAMINOPHEN 325 MG TAB As Ordered ONE (01:22)
[2020-01-03] MEDS ORDERED: ALBUTEROL 90 MCG/ACT 8GM HFA INHALER INH PRN (01:30)
[2020-01-03] MEDS: ACETAMINOPHEN TAB 650MG DOSE (2X325MG) PO PRN ×3 (01:42→12:06)
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
[2020-01-03 06:59] LABS: HEMATOCRIT 32.6 % (36.0-47.0); HEMOGLOBIN 11.1 g/dl (12.0-15.5); PLATELET COUNT, AUTOMATED 327 10^3/uL (150-450); RED BLOOD COUNT 3.26 10^6/uL (4.00-5.40); WHITE BLOOD COUNT 4.4 10^3/uL (4.0-10.0)
[2020-01-03 07:30] LABS: BLOOD UREA NITROGEN 17 MG/DL (7-18); CALCIUM LEVEL 8.8 MG/DL (8.8-10.2); CARBON DIOXIDE LEVEL 30 MEQ/L (21-32); CHLORIDE LEVEL 105 MEQ/L (98-107); CREATININE FOR GFR 0.68 MG/DL (0.55-1.30); GLOMERULAR FILTRATION RATE > 60.0 (>39); GLUCOSE, FASTING 123 MG/DL (70-100); SODIUM LEVEL 139 MEQ/L (136-145)
[2020-01-03 10:55] VITALS: BP 170/84
[2020-01-03] MEDS: METOPROLOL SUCC (TopROL XL) 100MG *XL* TAB PO SCH (12:05)
[2020-01-03 13:21] LABS: HEMATOCRIT 34.7 % (36.0-47.0); HEMOGLOBIN 11.8 g/dl (12.0-15.5); MEAN CORPUSCULAR HEMOGLOBIN 34.1 pg (27.0-33.0); MEAN CORPUSCULAR VOLUME 100.3 fl (80.0-96.0); PLATELET COUNT, AUTOMATED 349 10^3/uL (150-450); RED BLOOD COUNT 3.46 10^6/uL (4.00-5.40)
--- NOTE | 2020-01-03 13:23 | REPVR ---
PROCEDURE INFORMATION: Exam: US Abdomen, Limited; Right Upper Quadrant Exam date and time: 01/03/2020 12:52 PM Age: 74 years old Clinical indication: Abnormal findings; Abnormal radiologic finding of the abdomen; Radiologic exam and body structure: CT; Additional info: CT finding: Enlargement of the left and caudate lobes TECHNIQUE: Imaging protocol: US abdomen. Real time ultrasound with image documentation. Limited exam focused on the right upper quadrant. COMPARISON: CT ABD/PEL W/IV CONTRAST ONLY 01/02/2020 7:42 PM FINDINGS: Liver: Very limited visualization of the liver due to body habitus. The visualized portions of the liver appear diffusely homogeneously echogenic. No hepatic mass is visualized. No definitive hepatic contour abnormality is identified, however evaluation is very limited on this ultrasound. Gallbladder: No gallstones. No abnormal gallbladder wall thickening. No abnormal gallbladder dilation. No pericholecystic fluid. Common bile duct: Common bile duct diameter = 0.4 cm. No intrahepatic or extrahepatic bile duct dilation is imaged. Pancreas: The region of the pancreas is imaged, however the pancreas is not visualized as it is obscured by overlying structures. Right kidney: Right kidney length = 11.4 cm. No right hydronephrosis. IMPRESSION: 1. Limited visualization of the liver due to technical factors. 2. Findings suggestive of hepatic steatosis. Electronically signed by: Beltran Phillips On 01/03/2020 13:23:37 PM
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
[2020-01-03] MEDS: INDAPAMIDE 1.25MG TABLET PO SCH (15:32)
[2020-01-03] MEDS: LETROZOLE 2.5 MG TAB PO SCH (15:32)
[2020-01-03] MEDS: KETOROLAC 30 MG/ML 1ML VIAL IV PRN (15:41)
[2020-01-03 22:00] VITALS: BP 140/58
[2020-01-04] MEDS: KETOROLAC 30 MG/ML 1ML VIAL IV PRN (05:10)
[2020-01-04 06:00] VITALS: BP 138/58
[2020-01-04 06:58] LABS: HEMATOCRIT 32.1 % (36.0-47.0); HEMOGLOBIN 10.9 g/dl (12.0-15.5); MEAN CORPUSCULAR HEMOGLOBIN 34.2 pg (27.0-33.0); MEAN CORPUSCULAR VOLUME 100.6 fl (80.0-96.0); PLATELET COUNT, AUTOMATED 308 10^3/uL (150-450); RED BLOOD COUNT 3.19 10^6/uL (4.00-5.40); WHITE BLOOD COUNT 4.5 10^3/uL (4.0-10.0)
[2020-01-04 07:23] LABS: BLOOD UREA NITROGEN 17 MG/DL (7-18); CALCIUM LEVEL 8.7 MG/DL (8.8-10.2); CARBON DIOXIDE LEVEL 28 MEQ/L (21-32); CHLORIDE LEVEL 106 MEQ/L (98-107); CREATININE FOR GFR 0.76 MG/DL (0.55-1.30); GLOMERULAR FILTRATION RATE > 60.0 (>39); GLUCOSE, FASTING 160 MG/DL (70-100); POTASSIUM SERUM 3.6 MEQ/L (3.5-5.1); SODIUM LEVEL 139 MEQ/L (136-145)
[2020-01-04] MEDS ORDERED: PALBOCICLIB PO SCH (09:00)
[2020-01-04] MEDS: INDAPAMIDE 1.25MG TABLET PO SCH (09:57)
[2020-01-04] MEDS: LETROZOLE 2.5 MG TAB PO SCH (09:57)
[2020-01-04 09:58] VITALS: BP 168/77
[2020-01-04] MEDS: METOPROLOL SUCC (TopROL XL) 100MG *XL* TAB PO SCH (09:58)
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
--- NOTE | 2020-01-25 16:14 | ECGEPIP ---
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
[2020-03-20] MEDS ORDERED: NOPALEA PO (13:10)
== END 2020-01-04 14:28 | disposition home or self-care (01) ==
LOC: EDBD 18:18 → M ED 18:18 → M ED INP 01-03 01:14 → M MSPAV 01-03 10:47
PROVIDERS: ADMIT Student in an Organized Health Care Education/Training Program; ATTEND Internal Medicine
DX: R10.9 Unspecified abdominal pain (principal); R07.89 Other chest pain; M54.5 Low back pain; K75.89 Other specified inflammatory liver diseases; R18.8 Other ascites; V43.52XA Car driver injured in collision with other type car in traffic accident, initial encounter; Y92.410 Unspecified street and highway as the place of occurrence of the external cause; I10 Essential (primary) hypertension; C50.912 Malignant neoplasm of unspecified site of left female breast; Z79.899 Other long term (current) drug therapy; Z79.83 Long term (current) use of bisphosphonates; Z88.5 Allergy status to narcotic agent; Z87.891 Personal history of nicotine dependence
CPT/HCPCS: 36415; 71260; 74177; 76705; 80047; 80048; 80076; 82550; 82553; 83690; 84484; 85025; 85027; 85610; 85730; 93005; 93306; 94640; 96374; 96376; 97161; 99285; J1885; Q9967

== ENCOUNTER → 2020-01-09 | Outpatient (CLI) | payer MEDICARE, OTHER ==
[~2020-01-09] MED LIST changes: +METO1TAB33; +METO1TAB33 PO; +NOPALEA PO; +XGEVINJ SC
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
== END ==
LOC: M RAD 08:01
PROVIDERS: ATTEND Internal Medicine Medical Oncology
DX: C50.919 Malignant neoplasm of unspecified site of unspecified female breast (principal); C79.51 Secondary malignant neoplasm of bone
CPT/HCPCS: 78306; A9503

== ENCOUNTER → 2020-09-23 | Outpatient (CLI) | payer MEDICARE, OTHER | LOC: M LAB 14:31 | PROVIDERS: ATTEND Internal Medicine Medical Oncology | DX: Z11.59 Encounter for screening for other viral diseases (principal) ==

== ENCOUNTER → 2020-10-15 | Outpatient (CLI) | payer MEDICARE, OTHER ==
[~2020-10-15] MED LIST changes: +GASTROGRAFIN SOLUTION 30ML (Q9963) As Ordered ONE; +ISOVUE-370 76% 100ML VIAL As Ordered ONE
--- NOTE | 2020-10-15 11:54 | REP ---
INDICATION: METASTATIC BREAST CA COMPARISON: 01/02/2020 TECHNIQUE: Axial contrast enhanced images from the thoracic inlet to the upper abdomen with coronal and sagittal reformations using 75 ml Isovue 370 intravenous contrast material. This CT examination was performed using the following dose reduction techniques: Automated exposure control, adjustment of mA and/or kv according to the patient's size, and use of iterative reconstruction technique. FINDINGS: Lung ruiz demonstrate chronic interstitial changes and chronic scarring at the bilateral bases (right greater than left). No acute consolidation, suspicious nodule or mass lesion. No effusion. No pneumothorax. Tracheobronchial tree is patent. No adenopathy. Mediastinum demonstrates stable normal appearance of the thoracic aorta, pulmonary vasculature and heart/pericardium. Surrounding musculoskeletal structures demonstrate age-related changes without focal osseous abnormality to suggest metastatic disease. IMPRESSION: Chronic changes. No acute mediastinal or pleuroparenchymal process. No evidence for metastatic disease. <Electronically signed by Ash Polo > 10/15/20 [id number]
--- NOTE | 2020-10-15 11:58 | REP ---
INDICATION: METASTATIC BREAST CA. COMPARISON: 01/02/2020 TECHNIQUE: Axial contrast-enhanced images from the lung bases to the pubic symphysis using oral and 100 cc Isovue 370 intravenous contrast material. Coronal and sagittal reformations obtained along with delayed images of the abdomen. This CT examination was performed using the following dose reduction techniques: Automated exposure control, adjustment of mA and/or kv according to the patient's size, and the use of iterative reconstruction technique. FINDINGS: Liver demonstrates fatty infiltration without focal hepatic lesion. The spleen, pancreas, gallbladder, bilateral adrenal glands and kidneys are normal. The enteric system including stomach, small, and large bowel appears normal. No evidence for obstruction or acute inflammatory process. Few scattered sigmoid diverticula noted without acute diverticulitis.. Pelvis demonstrates normal bladder and evidence for prior hysterectomy. No ascites. No free air. No intraperitoneal or retroperitoneal adenopathy. Abdominal aorta and vasculature appear normal. Musculoskeletal structures demonstrate age-related degenerative changes along with benign hemangioma in the L2 vertebral body. No focal abnormalities to suggest metastatic disease.. IMPRESSION: 1. Hepatosteatosis. 2. No acute abdominopelvic pathology appreciated. No evidence for metastatic disease. <Electronically signed by Ash Polo > 10/15/20 [id number]
== END ==
LOC: M RAD 09:44
PROVIDERS: ATTEND Internal Medicine Medical Oncology
DX: C50.919 Malignant neoplasm of unspecified site of unspecified female breast (principal); K76.0 Fatty (change of) liver, not elsewhere classified; D18.09 Hemangioma of other sites
CPT/HCPCS: 71260; 74177; Q9963; Q9967

== ENCOUNTER → 2021-01-14 | Outpatient (CLI) | payer MEDICARE, OTHER ==
[~2021-01-14] MED LIST changes: -GASTROGRAFIN SOLUTION 30ML (Q9963) As Ordered ONE; -ISOVUE-370 76% 100ML VIAL As Ordered ONE; +TRIVITA
--- NOTE | 2021-01-14 14:34 | REP ---
INDICATION: MET BREAST CA. Patient is a history of intramedullary nohemi orthopedic fixation left femur. COMPARISON: Comparison radionuclide bone scan January 09, 2020. TECHNIQUE/RADIOTRACER AND DOSE: 22.0 mCi of Technetium-99m MDP was injected and standard whole-body bone scanning is acquired. FINDINGS: There is uptake in bilateral kidneys and in the urinary bladder as before. There is increased uptake in at mid shaft and distal shaft of the left femur unchanged from the pattern from January 09, 2020 in this patient with status post intramedullary nohemi fixation of the left femur. There is some associated residual soft tissue uptake in the left thigh also unchanged. Previous study showed a focus of slightly increased uptake in the left mid sacrum. This is again seen although less avid in appearance. There is degenerative uptake in the thoracic spine and lumbar spine related to degenerative disc changes. No new area of focally increased skeletal uptake is seen to suggest a new focus of bony metastatic disease. IMPRESSION: No new area of focal skeletal uptake seen. Increased uptake in the operated left femur and as previously noted in the left mid sacrum. <Electronically signed by Josse Barrett > 01/14/21 [id number]
== END ==
LOC: M RAD 10:41
PROVIDERS: ATTEND Internal Medicine Medical Oncology
DX: C50.919 Malignant neoplasm of unspecified site of unspecified female breast (principal); M51.34 Other intervertebral disc degeneration, thoracic region; M51.36 Other intervertebral disc degeneration, lumbar region
CPT/HCPCS: 78306; A9503

== ENCOUNTER → 2021-06-23 | Outpatient (CLI) | payer MEDICARE, OTHER ==
[~2021-06-23] MED LIST changes: +VITMTA PO; +[UNRECOGNIZED DRUG - OTHER] PO; +[UNRECOGNIZED DRUG - OTHER] PO
== END ==
LOC: M WHC 10:37
PROVIDERS: ATTEND Internal Medicine Medical Oncology
DX: C50.912 Malignant neoplasm of unspecified site of left female breast (principal); C79.51 Secondary malignant neoplasm of bone; M85.851 Other specified disorders of bone density and structure, right thigh; M85.88 Other specified disorders of bone density and structure, other site

== ENCOUNTER → 2021-11-05 | Outpatient (CLI) | payer MEDICARE, OTHER ==
[~2021-11-05] MED LIST changes: +GASTROGRAFIN SOLUTION 30ML (Q9963) As Ordered ONE; +ISOVUE-370 76% 100ML VIAL As Ordered ONE; +[UNRECOGNIZED DRUG - OTHER] PO; +[UNRECOGNIZED DRUG - OTHER] PO; +pine bark PA
== END ==
LOC: M RAD 11:35
PROVIDERS: ATTEND Internal Medicine Medical Oncology
DX: C50.919 Malignant neoplasm of unspecified site of unspecified female breast (principal); K76.0 Fatty (change of) liver, not elsewhere classified
CPT/HCPCS: 71260; 74177; Q9963; Q9967

== ENCOUNTER → 2022-08-02 | Outpatient (CLI) | payer MEDICARE, OTHER ==
[~2022-08-02] MED LIST changes: -GASTROGRAFIN SOLUTION 30ML (Q9963) As Ordered ONE; +GASTROGRAFIN SOLUTION 30ML As Ordered ONE; +INDA1.253 PO; -INDA125TA PO
== END ==
LOC: M RAD 13:27
PROVIDERS: ATTEND Nurse Practitioner
DX: C50.919 Malignant neoplasm of unspecified site of unspecified female breast (principal); K76.0 Fatty (change of) liver, not elsewhere classified; R16.0 Hepatomegaly, not elsewhere classified; K57.90 Diverticulosis of intestine, part unspecified, without perforation or abscess without bleeding; J84.9 Interstitial pulmonary disease, unspecified
CPT/HCPCS: 71260; 74177; Q9963; Q9967

== ENCOUNTER → 2023-07-29 | Outpatient (CLI) | payer MEDICARE, OTHER ==
[~2023-07-29] MED LIST changes: -HYDR50TA PO; +HYDR50TA47 PO; +IBRA100C PO; +IRBE150T27; -IRBE150T7; +MCTPAK PO; +PALB100T PO; +VITA500T41 PO
== END ==
LOC: M RAD 12:37
PROVIDERS: ATTEND Internal Medicine Medical Oncology
DX: C50.919 Malignant neoplasm of unspecified site of unspecified female breast (principal); E04.1 Nontoxic single thyroid nodule; R16.0 Hepatomegaly, not elsewhere classified; K76.0 Fatty (change of) liver, not elsewhere classified; N28.1 Cyst of kidney, acquired
CPT/HCPCS: 71260; 74177; Q9963; Q9967

== ENCOUNTER → 2025-04-01 | Outpatient (CLI) | payer MEDICARE, OTHER ==
[~2025-04-01] MED LIST changes: -GASTROGRAFIN SOLUTION 30ML As Ordered ONE; -IBUP1TAB6 PO; -ISOVUE-370 76% 100ML VIAL As Ordered ONE; +METF500T13; +SFHIBU600 PO; +TIRZ2.5P; +TRUL10IN
== END ==
LOC: M PLARAD 13:16
PROVIDERS: ATTEND Internal Medicine Medical Oncology
DX: C50.812 Malignant neoplasm of overlapping sites of left female breast (principal)
CPT/HCPCS: 78815; A9552